=== PATIENT | male | born 1945 | race Caucasian/White ===

== ENCOUNTER → 2021-11-30 09:33 | Outpatient (CLI) | payer OTHER, MEDICARE, SELFPAY ==
[2021-11-30 19:01] LABS: Add Manual Diff / Slide Review NO; Basophils Absolute Auto 0 /uL (0-100); Basophils Percent Auto 0.7 % (0-2); Eosinophils Absolute Auto 700 /uL (0-450); Hematocrit 43.7 % (41-53); Hemoglobin 15.1 g/dL (13.5-17.5); Lymphocytes Absolute Auto 2600 /uL (1100-4500); Lymphocytes Percent Auto 39.2 % (25-40); Mean Corpuscular HGB Conc 34.6 % (30-36); Mean Corpuscular Hemoglobin 32.8 PG (26-34); Mean Corpuscular Volume 94.9 fL (80-100); Monocytes Absolute Auto 400 /uL (0-900); Monocytes Percent Auto 6.7 % (3-14); Neutrophils Absolute Auto 2900 /uL (1500-7000); Neutrophils Percent Auto 43.4 % (50-75); Platelet Count 263 X10^3/uL (150-400); Red Cell Distribution Width 13.7 % (11.6-14.8); White Blood Cell Count 6.7 X10^3/uL (4.5-11.0)
[2021-11-30 19:16] LABS: Alanine Aminotransferase 29 IU/L (<50); Albumin 4.3 g/dL (3.5-5.0); Albumin Globulin Ratio 1.5 (1.0-2.8); Alkaline Phosphatase 52 U/L (38-126); Aspartate Aminotransferase 38 IU/L (17-59); Bilirubin Total 0.9 mg/dL (0.2-1.3); Blood Urea Nitrogen 16 mg/dL (9-20); Calcium 9.7 mg/dL (8.4-10.2); Carbon Dioxide 27 mmol/L (22-32); Chloride 107 mmol/L (98-107); Cholesterol 238 mg/dL (140-199); Estimated Glomerular Filt Rate > 60.0 mL/min (>60); Globulin 2.9 g/dL (1.7-4.1); Glucose 111 mg/dL (80-110); HDL Cholesterol 55 mg/dL (40-60); HEMOLYSIS < 15 (0-50); LDL Cholesterol Calculated 156 mg/dL (<100); Potassium 4.5 mmol/L (3.4-5.1); Sodium 139 mmol/L (137-145); Total Protein 7.2 g/dL (6.3-8.2); Triglycerides 137 mg/dL (35-150)
[2021-11-30 19:33] LABS: Free T3, Triiodothyronine Free 3.36 pg/mL (2.77-5.27)
[2021-11-30 19:45] LABS: Prostate Specific Antigen 5.07 ng/mL (0.10-4.00)
[2021-11-30 19:47] LABS: TSH w/ Reflex to FT4 4.83 uIU/mL (0.47-4.68)
[2021-11-30 20:23] LABS: Free T4, Direct Thyroxine 1.36 ng/dL (0.78-2.19)
== END ==
PROVIDERS: PCP Physician Assistant Medical; Visit Provider Physician Assistant Medical
DX: E03.9 Hypothyroidism, unspecified (principal); E78.00 Pure hypercholesterolemia, unspecified; G31.84 Mild cognitive impairment of uncertain or unknown etiology; R39.11 Hesitancy of micturition
CPT/HCPCS: 80053; 80061; 84153; 84439; 84443; 84481; 85025

== ENCOUNTER → 2022-04-21 08:29 | Outpatient (CLI) | payer OTHER, MEDICARE, SELFPAY ==
[2022-04-21 19:19] LABS: COVID19 - ORCAS (NP or Nasal) Negative (Negative)
== END ==
PROVIDERS: PCP Physician Assistant Medical; Visit Provider Physician Assistant Medical
DX: Z20.822 Contact with and (suspected) exposure to COVID-19 (principal)
CPT/HCPCS: U0003

== ENCOUNTER → 2022-07-13 07:33 | Outpatient (CLI) | payer OTHER, MEDICARE, SELFPAY ==
--- NOTE | 2022-07-13 07:38 | DI.ECHO.S_ITS ---
[facility] +---------+ : : [address] : : : : [id number] : : : : Phone: [phone]+ Echocardiogram Report + + :Name: HERON HARRIS Study Date: 07/13/2022 Height: 71 in : [facility] Reading[facility]: Weight: 205 lb : : Gender: Male BSA: 2.1 m2 : :: 1945 Age: 77 yrs BP: 126/75 mmHg: :Reason For Study: ATRIAL FIBRILLATION : :Ordering Physician: KENNEDY, : :CHARLEE Performed By: Carmen De La Rosa : :Referring: HCARLEE PERRY : + + Interpretation Summary 1) Normal left ventricular size, wall motion, and systolic function (EF 55- 60%). 2) Normal right ventricular size and function. 3) No significant valvular abnormalities. 4) No prior Echo available for comparison. Procedure: A two-dimensional transthoracic echocardiogram with color flow and Doppler was performed. The study quality was technically adequate. There is no prior echocardiogram noted for this patient. The patient was in sinus rhythm with heart rates between 68-77 bpm during the exam. Left Ventricle: The left ventricle is normal in size. There is mild concentric left ventricular hypertrophy. The ejection fraction is estimated to be 55-60%. Left ventricular systolic function appears normal without focal wall motion abnormalities. Diastolic parameters suggest a relaxation abnormality of the left ventricle, consistent with probable normal filling pressures. Right Ventricle: The right ventricle is normal in size and function. Atria: The left atrium is mildly dilated. Right atrial size is normal. There is no Doppler evidence for an interatrial shunt. Mitral Valve: The mitral valve is normal in structure and function. There is trace mitral regurgitation. Aortic Valve: The aortic valve is trileaflet. The aortic valve opens well. There is no aortic valve stenosis. No aortic regurgitation is present. Tricuspid Valve: The tricuspid valve is normal in structure and function. No tricuspid regurgitation. Pulmonic Valve: The pulmonic valve is not well visualized. There is no pulmonic valvular regurgitation. Great Vessels: The aortic root is normal size. The ascending aorta could not be visualized. The IVC is of normal diameter and collapses greater than 50% with a sniff. This suggests a low right atrial pressure of 3 mm Hg. Pericardium/ Pleura There is no pericardial effusion. There is no pleural effusion. MMode/2D Measurements & Calculations LVIDd: 4.8 cm LVOT diam: 2.3 cm LVIDs: 3.0 cm Ao root diam: 3.7 cm FS: 37.7 % Ao Arch Diam (Prox Trans): 3.3 cm IVSd: 1.1 cm LVPWd: 1.1 cm LV lopez. diameter/BSA (cm/m^2): 2.2 LV sys. diameter/BSA (cm/m^2): 1.4 LA A2 area: 23.7 cm2 RA long axis: 5.9 cm LA A4 area: 22.1 cm2 RA area: 18.6 cm2 LA length (vol): 6.2 cm RA vol: 49.9 ml LA vol: 71.4 ml RA : 23.4 ml/m2 LA vol index: 33.5 ml/m2 IVC diam: 1.7 cm RVD1 (basal): 3.1 cm RVD2 (mid): 3.2 cm TAPSE: 2.0 cm Doppler Measurements & Calculations Ao V2 max: 113.0 cm/sec LVOT Max Pepe: 106.2 cm/sec Ao V2 mean: 78.3 cm/sec LV V1 max P.5 mmHg Ao max P.1 mmHg LV V1 VTI: 21.8 cm Ao mean P.7 mmHg TABITHA(I,D): 3.9 cm2 Ao V2 VTI: 24.1 cm TABITHA(V,D): 4.1 cm2 sev ratio: 0.90 TABITHA indexed to BSA (cm^2/m^2): 1.8 MV E max pepe: 49.7 cm/sec PA V2 max: 102.5 cm/sec MV A max pepe: 49.3 cm/sec PA V2 mean: 69.0 cm/sec MV E/A: 1.0 PA mean P.2 mmHg Med Peak E' Pepe: 7.9 cm/sec PA pr(Accel): 27.6 mmHg E/E' med: 6.3 Lat Peak E' Pepe: 9.7 cm/sec E/E' lat: 5.1 E/e' average: 5.7 MV dec time: 0.18 sec SVLAZARA): 94.4 ml Reading Physician:06:16 PM
--- NOTE | 2022-07-13 07:39 | DI.NM.S_ITS ---
PROCEDURE: NM EXERCISE TREADMILL NON NUC COMPARISON: None. INDICATIONS: Paroxysmal atrial fibrillation FINDINGS: Rest ECG sinus rhythm. Colten protocol 5:46, maximum heart rate 140 BPM (97% peak predicted), maximum blood pressure 216/80, 7.0 METS, AMBREEN +9%. Stress ECG sinus tachycardia, 0.[address] segment depressions V4 through V6, occasional PACs. IMPRESSION: 1. Low risk test. 2. The 0.[address] segment depressions are not diagnostic for inducible ischemia. 3. Hypertensive response to exercise. 4. Slightly reduced exercise capacity. Dictated by: Shirlene Huertas D.O. on 07/13/2022 at 15:48 Approved by: Shirlene Huertas D.O. on 07/13/2022 at 16:05
[2022-07-13 08:54] LABS: COVID19 -Nasal RAPID Negative (Negative)
== END ==
PROVIDERS: PCP Physician Assistant Medical; Referring Provider Internal Medicine Cardiovascular Disease; Visit Provider Internal Medicine Cardiovascular Disease
DX: I48.0 Paroxysmal atrial fibrillation (principal)
CPT/HCPCS: 87635; 93017; 93306

== ENCOUNTER 2022-10-08 16:39 | Emergency (ER) | payer MEDICARE, OTHER, SELFPAY ==
[2022-10-08 17:00] VITALS: BP 118/67; PULSE 76; RESP 20; TEMP 36.8; O2SAT 98; BMI 28.5
--- NOTE | 2022-10-08 18:23 | ED.MALEGU ---
HPI - Male Genitourinary General Chief complaint: Urogenital-Male Stated complaint: Fall/Cath, Blood in Urine Time Seen by Provider: 10/08/22 17:19 Source: patient Mode of arrival: Ambulatory History of Present Illness HPI Narrative: 77-year-old male nonsmoker with history elevated PSA, hypothyroid and recent visit for urinary retention with Rodriguez catheter in place presents with his and chief complaint of what is described as an unwitnessed ground level fall in which he was preparing to get into the shower and leaned against the shower wall and slid to the ground, is catheter was apparently talked a bit and there is report of blood in the catheter but no other complaint. Denies any head neck or back pain. He is had no chest pain or shortness of breath. He denies nausea, vomiting or diarrhea. He has no abdominal pain, dysuria. He denies any other injury. In a separate conversation I was able to obtain an independent history from the patient's as he has become increasingly confused over the past few years. She states that he is had a few episodes over the past couple of months where he seems to slump over or even fall over without much warning, she does not know if what happened yesterday was another of these episodes or something entirely different but wanted us to know. Related Data Home Medications Medication Instructions Recorded Confirmed levothyroxine 100 mcg tablet 100 mcg PO DAILY 11/21/21 11/30/21 Previous Rx's Medication Instructions Recorded levothyroxine 112 mcg tablet See Rx Instructions .Route 08/09/22 .COMPLEX #90 tabs cephalexin 500 mg capsule 500 mg PO BID #10 caps 10/08/22 Allergies Allergy/AdvReac Type Severity Reaction Status Date / Time No Known Drug Allergies Allergy Unverified 11/21/21 15:13 Review of Systems Review of Systems Narrative: GENERAL: Denies chills, fatigue, malaise, fever, sweats. HEENT: Denies sinus pain, ear pain, sore throat, difficulty swallowing, dizziness. RESPIRATORY: Denies dyspnea, cough, wheezing, hemoptysis, sputum. CARDIOVASCULAR: Denies chest pain, palpitations, orthopnea, edema, GASTROINTESTINAL: Denies nausea, vomiting, abdominal pain, diarrhea, constipation, melena. : See HPI MUSCULOSKELETAL: denies weakness, joint pain, or bony pain SKIN: Denies rash, skin lesions, or other NEUROLOGIC: Denies weakness, headache, numbness, change in speech, confusion, seizures, incoordination. PSYCHIATRIC: No concerning psychosocial issues. 12 point review of systems is negative except for those stated above Patient History Medical History History of atrial fibrillation Precancerous skin lesion Shoulder pain Tinnitus (~2000) Surgical History Anesthesia Cardiac defibrillator in place History of shoulder surgery Family History Sister Hyperlipidemia Social History Smoking Status: Never smoker Smoking Status: Never smoker Substance Use Type: does not use Exam Narrative Exam Narrative: GENERAL: [77] year old patient appears stated age. Well-developed patient, in mild distress. GCS 14 (slightly confused) HEAD: Atraumatic. Normocephalic. EYES: Pupils equal round and reactive. Extraocular motions intact. No scleral icterus. No injection or drainage. ENT: Nose without bleeding, purulent drainage. Throat without erythema, tonsillar hypertrophy or exudate. Airway patent. NECK: Trachea midline. Non tender CARDIOVASCULAR: Regular rate and rhythm without murmurs, gallops, or rubs. RESPIRATORY: Clear to auscultation. Breath sounds equal bilaterally. No wheezes, rales, or rhonchi. GASTROINTESTINAL: Abdomen soft, non-tender, nondistended. : Rodriguez catheter in place bloody urine in Rodriguez bag EXTREMITIES: No edema or joint tenderness. BACK: Nontender without deformity or crepitance. No flank tenderness. NEURO: AOx3. SKIN: No rash or erythema of visible areas Initial Vital Signs Initial Vital Signs: Vital Signs Temperature 98.3 F 10/08/22 17:00 Pulse Rate 76 10/08/22 17:00 Respiratory Rate 20 10/08/22 17:00 Blood Pressure 118/67 10/08/22 17:00 Pulse Oximetry 98 10/08/22 17:00 Oxygen Delivery Method 10/08/22 17:00 Course Course Course Narrative: Current Rodriguez catheter replaced with a 3 way with plans to irrigate to clear. Patient received only a few 100 cc of the irrigant before he completely cleared up Orders Ordered: Discontinued Medications Cefazolin Sodium (Cephalexin 250 Mg Prepack) 1 bottle MISC SEEINSTR ONE Stop: 10/08/22 20:33 Last Admin: 10/08/22 21:30 Dose: 250 mg Documented By: ELTON Vital Signs Vital signs: Vital Signs - 8 hr 10/08/22 17:00 Temperature 98.3 F Pulse Rate 76 Respiratory Rate 20 Blood Pressure 118/67 Pulse Oximetry 98 Oxygen Delivery Method Room Air MDM - Male Genitourinary Lab Data Result diagrams: 10/08/22 18:52 10/08/22 18:52 Labs: Lab Results 10/08/22 10/08/22 10/08/22 Range/Units 18:52 18:52 18:52 WBC 7.0 (4.5-11.0) X10^3/uL RBC 4.57 (4.5-5.9) X10^6/uL Hgb 14.6 (13.5-17.5) g/dL Hct 43.0 (41-53) % MCV 94.0 (80-100) fL MCH 32.0 (26-34) PG MCHC 34.0 (30-36) % RDW 13.4 (11.6-14.8) % Plt Count 265 (150-400) X10^3/uL Neut % (Auto) 55.5 (50-75) % Lymph % (Auto) 32.4 (25-40) % [place] % (Auto) 5.5 (3-14) % Eos % (Auto) 5.9 H (2-4) % Baso % (Auto) 0.7 (0-2) % Neut # (Auto) 3900 (9698-7259) /uL Lymph # (Auto) 2300 (7084-8513) /uL [place] # (Auto) 400 (0-900) /uL Eos # (Auto) 400 (0-450) /uL Baso # (Auto) 0 (0-100) /uL Sodium 140 (137-145) mmol/L Potassium 4.1 (3.4-5.1) mmol/L Chloride 104 (98-107) mmol/L Carbon Dioxide 27 (22-32) mmol/L BUN 13 (9-20) mg/dL Creatinine 0.84 (0.66-1.25) mg/dL Estimated GFR > 60 (>60) mL/min BUN/Creatinine Ratio 15.5 (6-22) Glucose 93 (80-110) mg/dL Calcium 9.0 (8.4-10.2) mg/dL Total Bilirubin 0.4 (0.2-1.3) mg/dL AST 29 (17-59) IU/L ALT 26 (<50) IU/L Alkaline Phosphatase 58 (38-126) U/L Total Creatine Kinase 53 L (55-170) U/L CK-MB (CK-2) TNP CK-MB (CK-2) Rel Index TNP Troponin I < 0.012 (0.01-0.034) ng/mL Total Protein 7.4 (6.3-8.2) g/dL Albumin 4.1 (3.5-5.0) g/dL Globulin 3.3 (1.7-4.1) g/dL Albumin/Globulin Ratio 1.2 (1.0-2.8) TSH 3.29 (0.47-4.68) uIU/mL Urine Dip Bedside Urine Glucose Negative Bedside Urine Bilirubin + 1 Bedside Urine Ketone +/- 5 Urine Specific [place] 1.030 Bedside Urine Occult Blood +++ Bedside Urine pH 5.5 Bedside Urine Protein ++ 100 Bedside Urine Urobilinogen 1+ 2mg Bedside Urine Nitrite + Positive Bedside Urine Leukocytes ++ [address] scan - head: Radiologist's Impression: [address] [address] [address] Scan Report Signed Patient: Ok Vargas MR#: [id number] : 1945 Acct:[id number] Age/Sex: 77 / M Date of Service: 10/08/22 Loc: ED Accession Number: [id number] ?? Procedure: CT head/brain wo con Ordering Provider: Tez Ayon D.O. PROCEDURE:? CT HEAD/BRAIN WO CON ? INDICATIONS:? fall, possible head injury ? TECHNIQUE:? Noncontrast 4.5 mm thick angled axial sections acquired from the foramen magnum to the vertex, with coronal and sagittal reformats.? For radiation dose reduction, the following was used:? automated exposure control, adjustment of mA and/or kV according to patient size.? ? COMPARISON:? None. ? FINDINGS:? Image quality:? Excellent.? ? CSF spaces:? Basal cisterns are patent.? No extra-axial fluid collections.? There is mild cerebral volume loss, with resultant ventricular and sulcal prominence.? ? Brain:? No intracranial hemorrhage, mass, or mass effect.? There are subcortical, periventricular and deep white matter hypodensities consistent with mild chronic small vessel ischemic changes.? The matthews-white matter junction appears preserved.? There is intracranial internal carotid artery atherosclerosis.? ? Skull and face:? Calvarium and visualized facial bones appear intact, without suspicious lesions.? ? Sinuses:? Visualized sinuses demonstrate mucosal thickening within the frontal, ethmoid, maxillary, and sphenoid sinuses with a few scattered air-fluid levels.? Findings are suggestive of acute sinusitis.? Mastoid air cells are clear. ? IMPRESSION:? ? 1. No acute intracranial abnormality. ? 2. Mild chronic white matter small vessel ischemic changes and cerebral volume loss. ? 3. Sinus mucosal disease with scattered air-fluid levels suggestive of acute sinusitis.? ? ? Dictated by: Delbert Pal M.D. on 10/08/2022 at 20:58 ? ? Approved by: Delbert Pal M.D. on 10/08/2022 at 21:01 ? MDM Narrative Medical decision making narrative: 77-year-old male with hyperlipidemia, BPH and recent Rodriguez catheter presents with an unwitnessed fall and now blood in his Rodriguez bag. Multiple diagnoses considered but not limited to hematuria from urine infection, hematuria from urethral injury. Patient's fall sounds most consistent with a mechanical fall, however other considerations include syncope due to orthostatics, possible arrhythmia, seizure versus other. Patient states he fell though his recollection and accuracy are questionable. Independent history has been obtained from his , please see above for details. Labs independently reviewed and very reassuring, no elevated white blood cell count, left shift or evidence of anemia. Electrolytes and renal function reassuring and no abnormalities noted Rodriguez catheter switch to a three-way and rapidly clears after only a small amount of flush CT of the head obtained and no abnormal findings noted Urine POC notes signs of infection, patient given prepack of antibiotics and prescription printed Extensive return precautions discussed with and patient which include syncope, fever greater than 101 F, persistent vomiting, increased bleeding or any other concerns. These precautions are understood by patient and family as evidenced by their ability to verbalize them back Discharge Plan Departure Patient Disposition: Home Clinical Impression: Hematuria, Acute UTI Instructions: DI for Urinary Tract Infection (UTI), DI for Hematuria Activity Restrictions/Additional Instructions: *You have been diagnosed with [urinary tract infection with hematuria. As we discussed the history and physical exam as well as labs and imaging are reassuring.] *What to do: *Please continue to take your regular medications as directed. [ ] New medication prescriptions sent to your pharmacy: [ ] [x ] New medication written as a paper prescription [ ] No new medications given *Please follow up with your primary care provider in 2-3 days, call for an appointment. Let them know you were seen in the Emergency Department and that we ask that you be seen in follow up. We will electronically transmit a record of today's note if your PCP is in our system *If you do not have a primary care provider please contact the [facility] Resource line at [phone]. They will ask some questions about your medical history and help get you set up with a doctor in the community. *Return to Emergency Department if you should have any new, worsening or concerning symptoms, such as [fever greater than 101 F, shaking chills, worsening pain, persistent vomiting or other bothersome symptoms] Prescriptions: New cephalexin 500 mg capsule 500 mg PO BID Qty: 10 0RF No Action levothyroxine 112 mcg tablet See Rx Instructions .ROUTE .COMPLEX Qty: 90 0RF Dose Instruction: TAKE ONE TABLET BY MOUTH EVERY DAY Rx Instructions: TAKE ONE TABLET BY MOUTH EVERY DAY levothyroxine 100 mcg tablet 100 mcg PO DAILY Referrals: Barbara Moctezuma PA-C [Primary Care Provider] - Visit Report Forms: Patient Portal/API
--- NOTE | 2022-10-08 18:29 | PC.NURSE ---
pt slipped in shower yesterday, had EMS called and was evaluated, declined to be taken to hospital. later in the night started having bright red blood in his quach bag. pt states he has emptied 3 night bags in the last 24hr but since 1300 today has had a small amount of output.
[2022-10-08 19:04] LABS: Add Manual Diff / Slide Review NO; Basophils Absolute Auto 0 /uL (0-100); Basophils Percent Auto 0.7 % (0-2); Eosinophils Absolute Auto 400 /uL (0-450); Eosinophils Percent Auto 5.9 % (2-4); Hemoglobin 14.6 g/dL (13.5-17.5); Lymphocytes Absolute Auto 2300 /uL (1100-4500); Lymphocytes Percent Auto 32.4 % (25-40); Monocytes Absolute Auto 400 /uL (0-900); Monocytes Percent Auto 5.5 % (3-14); Neutrophils Absolute Auto 3900 /uL (1500-7000); Neutrophils Percent Auto 55.5 % (50-75); Platelet Count 265 X10^3/uL (150-400); Red Blood Cell Count 4.57 X10^6/uL (4.5-5.9); Red Cell Distribution Width 13.4 % (11.6-14.8)
[2022-10-08 19:13] LABS: Alanine Aminotransferase 26 IU/L (<50); Albumin 4.1 g/dL (3.5-5.0); Albumin Globulin Ratio 1.2 (1.0-2.8); Alkaline Phosphatase 58 U/L (38-126); Aspartate Aminotransferase 29 IU/L (17-59); BUN Creatinine Ratio 15.5 (6-22); Bilirubin Total 0.4 mg/dL (0.2-1.3); Blood Urea Nitrogen 13 mg/dL (9-20); Carbon Dioxide 27 mmol/L (22-32); Chloride 104 mmol/L (98-107); Creatine Kinase 53 U/L (55-170); Estimated Glomerular Filt Rate > 60 mL/min (>60); Globulin 3.3 g/dL (1.7-4.1); Glucose 93 mg/dL (80-110); HEMOLYSIS < 15 (0-50); Potassium 4.1 mmol/L (3.4-5.1); Sodium 140 mmol/L (137-145); Total Protein 7.4 g/dL (6.3-8.2)
[2022-10-08 19:23] LABS: Troponin I < 0.012 ng/mL (0.01-0.034)
[2022-10-08 20:04] LABS: TSH w/ Reflex to FT4 3.29 uIU/mL (0.47-4.68)
--- NOTE | 2022-10-08 20:14 | DI.CT.S_ITS ---
PROCEDURE: CT HEAD/BRAIN WO CON INDICATIONS: fall, possible head injury TECHNIQUE: Noncontrast 4.5 mm thick angled axial sections acquired from the foramen magnum to the vertex, with coronal and sagittal reformats. For radiation dose reduction, the following was used: automated exposure control, adjustment of mA and/or kV according to patient size. COMPARISON: None. FINDINGS: Image quality: Excellent. CSF spaces: Basal cisterns are patent. No extra-axial fluid collections. There is mild cerebral volume loss, with resultant ventricular and sulcal prominence. Brain: No intracranial hemorrhage, mass, or mass effect. There are subcortical, periventricular and deep white matter hypodensities consistent with mild chronic small vessel ischemic changes. The matthews-white matter junction appears preserved. There is intracranial internal carotid artery atherosclerosis. Skull and face: Calvarium and visualized facial bones appear intact, without suspicious lesions. Sinuses: Visualized sinuses demonstrate mucosal thickening within the frontal, ethmoid, maxillary, and sphenoid sinuses with a few scattered air-fluid levels. Findings are suggestive of acute sinusitis. Mastoid air cells are clear. IMPRESSION: 1. No acute intracranial abnormality. 2. Mild chronic white matter small vessel ischemic changes and cerebral volume loss. 3. Sinus mucosal disease with scattered air-fluid levels suggestive of acute sinusitis. Dictated by: Delbert Pal M.D. on 10/08/2022 at 20:58 Approved by: Delbert Pal M.D. on 10/08/2022 at 21:01
--- NOTE | 2022-10-08 20:36 | PC.NURSE ---
Verbal order for 3 L continuous irrigation.
[2022-10-08] MEDS: cephALEXin 250 MG PREPACK 1 BOTTLE MISC (21:30)
== END 2022-10-08 21:40 | disposition home or self-care (01) ==
PROVIDERS: Emergency Provider Emergency Medicine; PCP Physician Assistant Medical
DX: N39.0 Urinary tract infection, site not specified (principal); R31.9 Hematuria, unspecified; S09.90XA Unspecified injury of head, initial encounter; W18.30XA Fall on same level, unspecified, initial encounter
CPT/HCPCS: 36415; 70450; 80053; 81003; 82550; 84443; 84484; 85025; 99284

== ENCOUNTER → 2023-11-05 09:06 | Outpatient (CLI) | payer OTHER, MEDICARE, SELFPAY ==
[2023-11-05 19:53] LABS: BUN Creatinine Ratio 19.5 (6-22); Blood Urea Nitrogen 17 mg/dL (9-20); Calcium 9.5 mg/dL (8.4-10.2); Carbon Dioxide 28 mmol/L (22-32); Chloride 105 mmol/L (98-107); Cholesterol 258 mg/dL (140-199); Estimated Glomerular Filt Rate > 60 mL/min (>60); Glucose 107 mg/dL (80-110); HDL Cholesterol 48 mg/dL (40-60); HEMOLYSIS < 15 (0-50); LDL Cholesterol Calculated 171 mg/dL (<100); Potassium 4.3 mmol/L (3.4-5.1); Sodium 139 mmol/L (137-145); Triglycerides 193 mg/dL (35-150)
[2023-11-05 20:28] LABS: Prostate Specific Antigen 2.37 ng/mL (0.10-4.00)
[2023-11-05 20:29] LABS: TSH w/ Reflex to FT4 4.54 uIU/mL (0.47-4.68)
== END ==
PROVIDERS: PCP Family Medicine; Visit Provider Family Medicine
DX: E78.2 Mixed hyperlipidemia (principal); R97.20 Elevated prostate specific antigen [PSA]; E03.9 Hypothyroidism, unspecified
CPT/HCPCS: 80048; 80061; 84153; 84443

== ENCOUNTER → 2023-12-04 08:01 | Outpatient (CLI) | payer OTHER, MEDICARE, SELFPAY ==
[2023-12-04 19:42] LABS: Add Manual Diff / Slide Review NO; Basophils Absolute Auto 100 /uL (0-100); Basophils Percent Auto 0.8 % (0-2); Eosinophils Absolute Auto 600 /uL (0-450); Eosinophils Percent Auto 7.9 % (2-4); Hematocrit 44.8 % (41-53); Hemoglobin 15.2 g/dL (13.5-17.5); Lymphocytes Absolute Auto 3300 /uL (1100-4500); Lymphocytes Percent Auto 45.5 % (25-40); Mean Corpuscular HGB Conc 33.9 % (30-36); Mean Corpuscular Hemoglobin 32.7 PG (26-34); Mean Corpuscular Volume 96.6 fL (80-100); Monocytes Absolute Auto 400 /uL (0-900); Monocytes Percent Auto 5.9 % (3-14); Neutrophils Absolute Auto 2900 /uL (1500-7000); Neutrophils Percent Auto 39.9 % (50-75); Platelet Count 250 X10^3/uL (150-400); Red Blood Cell Count 4.64 X10^6/uL (4.5-5.9); Red Cell Distribution Width 13.1 % (11.6-14.8); White Blood Cell Count 7.2 X10^3/uL (4.5-11.0)
[2023-12-04 19:51] LABS: Blood Urea Nitrogen 13 mg/dL (9-20); Calcium 9.6 mg/dL (8.4-10.2); Carbon Dioxide 25 mmol/L (22-32); Chloride 106 mmol/L (98-107); Cholesterol 283 mg/dL (140-199); Estimated Glomerular Filt Rate > 60 mL/min (>60); Glucose 120 mg/dL (80-110); HDL Cholesterol 45 mg/dL (40-60); HEMOLYSIS < 15 (0-50); LDL Cholesterol Calculated 180 mg/dL (<100); Potassium 4.2 mmol/L (3.4-5.1); Sodium 138 mmol/L (137-145); Triglycerides 288 mg/dL (35-150)
== END ==
PROVIDERS: PCP Family Medicine; Visit Provider Internal Medicine Cardiovascular Disease
DX: I48.0 Paroxysmal atrial fibrillation (principal); E78.5 Hyperlipidemia, unspecified
CPT/HCPCS: 80048; 80061; 85025

== ENCOUNTER → 2024-10-27 14:22 | Outpatient (CLI) | payer OTHER, SELFPAY ==
[2024-10-27 19:10] LABS: Add Manual Diff / Slide Review NO; Basophils Absolute Auto 0 /uL (0-100); Basophils Percent Auto 0.5 % (0-2); Eosinophils Absolute Auto 200 /uL (0-450); Hematocrit 45.4 % (41-53); Hemoglobin 15.4 g/dL (13.5-17.5); Lymphocytes Absolute Auto 2400 /uL (1100-4500); Mean Corpuscular HGB Conc 33.9 % (30-36); Mean Corpuscular Hemoglobin 31.2 PG (26-34); Mean Corpuscular Volume 91.8 fL (80-100); Monocytes Absolute Auto 500 /uL (0-900); Monocytes Percent Auto 8.4 % (3-14); Neutrophils Absolute Auto 2800 /uL (1500-7000); Neutrophils Percent Auto 47.1 % (50-75); Platelet Count 272 X10^3/uL (150-400); Red Blood Cell Count 4.95 X10^6/uL (4.5-5.9); Red Cell Distribution Width 13.5 % (11.6-14.8); White Blood Cell Count 5.9 X10^3/uL (4.5-11.0)
[2024-10-27 19:33] LABS: Vitamin D 25 Hydroxy (D3) 48.9 ng/mL (30.0-100.0)
[2024-10-27 20:21] LABS: Folate > 20.0 ng/mL (2.76-20.0); Vitamin B12 960 pg/mL (239-931)
== END ==
PROVIDERS: PCP Family Medicine; Visit Provider Psychiatry & Neurology Neurology
DX: E55.9 Vitamin D deficiency, unspecified; R56.9 Unspecified convulsions; F02.B11 Dementia in other diseases classified elsewhere, moderate, with agitation
CPT/HCPCS: 82306; 82607; 82746; 85025

== ENCOUNTER → 2024-11-28 10:09 | Outpatient (CLI) | payer OTHER, SELFPAY ==
[2024-11-28 15:02] LABS: Cholesterol 194 mg/dL (140-199); HDL Cholesterol 53 mg/dL (40-60); LDL Cholesterol Calculated 101 mg/dL (<100); Triglycerides 200 mg/dL (35-150)
== END ==
PROVIDERS: PCP Family Medicine; Visit Provider Internal Medicine Cardiovascular Disease
DX: E78.5 Hyperlipidemia, unspecified (principal)
CPT/HCPCS: 80061

== ENCOUNTER → 2024-12-17 12:55 | Outpatient (CLI) | payer OTHER, SELFPAY ==
[2024-12-17 20:06] LABS: TSH w/ Reflex to FT4 2.17 uIU/mL (0.47-4.68)
== END ==
PROVIDERS: PCP Family Medicine; Visit Provider Family Medicine
DX: E03.9 Hypothyroidism, unspecified (principal)
CPT/HCPCS: 84443

== ENCOUNTER → 2025-03-04 10:12 | Outpatient (CLI) | payer OTHER, SELFPAY ==
[2025-03-04 19:42] LABS: Cholesterol 201 mg/dL (140-199); HDL Cholesterol 50 mg/dL (40-60); LDL Cholesterol Calculated 119 mg/dL (<100); Triglycerides 161 mg/dL (35-150)
== END ==
PROVIDERS: Registered Nurse; PCP Family Medicine; Visit Provider Internal Medicine Cardiovascular Disease
DX: Z51.81 Encounter for therapeutic drug level monitoring (principal); E78.5 Hyperlipidemia, unspecified; R56.9 Unspecified convulsions; R55 Syncope and collapse
CPT/HCPCS: 80061; 80183